=== PATIENT | female | born 1980 | race Caucasian/White ===

== ENCOUNTER 2020-01-02 12:39 | Emergency (ER) | payer OTHER ==
[2020-01-02 12:45] VITALS: BP 106/50; PULSE 62; TEMP 97.9; BMI 33.3
--- NOTE | 2020-01-02 12:56 | PDOC ---
*Physical Exam - Vital Signs Last Vital Signs Temp Pulse Resp BP Pulse Ox 97.9 F 62 18 106/50 L 99 01/02/20 12:43 01/02/20 12:43 01/02/20 12:43 01/02/20 12:43 01/02/20 12:43 - Physical Exam 01/02/20 12:56 The patient was examined by [EFRAÍN Rizo] under my direct supervision. I personally evaluated the patient. I concur with the above findings and the plan of care. ED Treatment Course - LABORATORY CBC & Chemistry Diagram: 01/02/20 13:23 01/02/20 13:23 Discharge - Discharge Information Problems reviewed: Yes Clinical Impression/Diagnosis: Threatened Condition: Stable Disposition: HOME - Follow up/Referral Referrals: Andrea Conte MD [Primary Care Provider] - - Patient Discharge Instructions Patient Printed Discharge Instructions: DI for Threatened Additional Instructions: Please return to the ED or go to your OBGYN office in TWO DAYS for repeat blood testing for continued monitoring of your . If you develop severe vaginal bleeding (more than one soaked pad an hour), dizziness, lightheadedness, palpitations, shortness of breath, or any new or worsening symptoms, please return to the ER immediately. Print Language: CZECH - Post Discharge Activity
--- NOTE | 2020-01-02 13:19 | PDOC ---
History of Present Illness - General Chief Complaint: Vaginal Bleeding Stated Complaint: 10 WEEKS VAGINAL BLEED Time Seen by Provider: 01/02/20 12:54 - History of Present Illness Initial Comments: 01/02/20 13:16 CHIEF COMPLAINT: vag bldg in HISTORY OF PRESENT ILLNESS: 39 yo 10 week F presents to ED with vaginal bleeding since this morning. Patient also c/o of headache for the past three days. Patient reports nausea but denies any vomiting. LMP 10/14/19. Patient is followed by [facility]. Patient reports having an ultrasound done 2 weeks ago with no abnormal findings. No recent travel or sick contacts. PAST MEDICAL HISTORY: Denies past medical history FAMILY HISTORY: Denies SOCIAL HISTORY: Denies tobacco, alcohol, illicit drug use. SURGICAL HISTORY: Denies ALLERGIES: No known drug allergies REVIEW OF SYSTEMS General/Constitutional: Denies fever or chills. Denies weakness, weight change. HEENT: Denies change in vision. Denies ear pain or discharge. Denies sore throat. Cardiovascular: Denies chest pain or shortness of breath. Respiratory: Denies cough, wheezing, or hemoptysis. Gastrointestinal: Denies nausea, vomiting, diarrhea or constipation. Denies rectal bleeding. Genitourinary: Vaginal spotting since this morning. Musculoskeletal: Denies joint or muscle swelling or pain. Denies neck or back pain. Skin and breasts: Denies rash or easy bruising. Neurologic: Denies headache, vertigo, loss of consciousness, or loss of sensation. Psychiatric: Denies depression or anxiety. PHYSICAL EXAM General Appearance: Well-appearing, appropriately dressed. No apparent distress. HEENT: EOMI, PERRLA, normal ENT inspection, normal voice, TMs normal, pharynx normal. No conjunctival pallor. No photophobia, scleral icterus. Neck: Supple. Trachea midline. No tenderness, rigidity, carotid bruit, stridor , lymphadenopathy, or thyromegaly. Respiratory/Chest: Lungs CTAB. No shortness of breath, chest tenderness, respiratory distress, accessory muscle use. No crackles, rales, rhonchi, stridor , wheezing, dullness Cardiovascular: RRR. S1, S2. No JVD, murmur, bradycardia, tachycardia. Vascular Pulses: Dorsalis-Pedis (R): 2+, Dorsalis-Pedis (L): 2+ Gastrointestinal/Abdominal: Normal bowel sounds. Abdomen soft, non-distended. No tenderness or rebound tenderness. No organomegaly, pulsatile mass, guarding , hernia, hepatomegaly, splenomegaly. Musculoskeletal/Extremities: Normal inspection. FROM of all extremities, normal capillary refill. Pelvis Stable. No CVA tenderness. No tenderness to extremities, pedal edema, swelling, erythema or deformity. Integumentary: Appropriate color, dry, warm. No cyanosis, erythema, jaundice or rash Neurologic: assistant clinical director II-XII intact. Fully oriented, alert. Appropriate mood/affect. Motor strength 5/5. No appreciable EOM palsy, facial droop or sensory deficit. Past History - Past Medical History Allergies/Adverse Reactions: Allergies Allergy/AdvReac Type Severity Reaction Status Date / Time No Known Allergies Allergy Verified 01/02/20 12:45 Home Medications: Ambulatory Orders Mv-Mn/Iron/FA/Herbal/Digestive [ One Tablet] 1 tab PO DAILY 04/06/15 Acetaminophen [Tylenol .Regular Strength -] 650 mg PO Q3H PRN #0 tablet Ferrous Sulfate [Feosol] 325 mg PO BID ud 10/30/15 Ibuprofen [Motrin -] 200 mg PO Q4H PRN #0 tablet 10/30/15 Asthma: No Cancer: No Cardiac Disorders: No COPD: No Diabetes: No HTN: No Seizures: No Thyroid Disease: No - Immunization History Immunization Up to Date: Yes - Psycho Social/Smoking Cessation Hx Smoking History: Never smoked Have you smoked in the past 12 months: No Information on smoking cessation initiated: No Hx Alcohol Use: No Drug/Substance Use Hx: No Hx Substance Use Treatment: No *Physical Exam - Vital Signs Last Vital Signs Temp Pulse Resp BP Pulse Ox 97.9 F 62 18 106/50 L 99 01/02/20 12:43 01/02/20 12:43 01/02/20 12:43 01/02/20 12:43 01/02/20 12:43 ED Treatment Course - LABORATORY CBC & Chemistry Diagram: 01/02/20 13:23 01/02/20 13:23 - RADIOLOGY Radiology Studies Ordered: Category Date Time Status TRANSVAGINAL US PREG [US] Stat Ultrasound 01/02/20 12:55 Ordered Medical Decision Making - Medical Decision Making 01/02/20 13:19 39 yo 10 week F presents to ED with vaginal bleeding since this morning. -labs, urine -TVUS 01/02/20 16:16 Labs unremarkable. Beta 92k+. Blood type O+, no indication for rhogam. US unremarkable. IUP visualized with estimated gestation 11 weeks and 1 day. Advised patient to return in 2 days for repeat beta. Advised of sxs for return to ER, patient verbalized understanding and agrees to plan. Discharge - Discharge Information Problems reviewed: Yes Clinical Impression/Diagnosis: Threatened Condition: Stable Disposition: HOME - Admission No - Follow up/Referral Referrals: Andrea Conte MD [Primary Care Provider] - - Patient Discharge Instructions Patient Printed Discharge Instructions: DI for Threatened Additional Instructions: Please return to the ED or go to your OBGYN office in TWO DAYS for repeat blood testing for continued monitoring of your . If you develop severe vaginal bleeding (more than one soaked pad an hour), dizziness, lightheadedness, palpitations, shortness of breath, or any new or worsening symptoms, please return to the ER immediately. Print Language: WOLOF - Post Discharge Activity
[2020-01-02 13:58] LABS: INR 0.97 (0.83-1.09); PROTHROMBIN TIME (PATIENT) 11.5 SEC (9.7-13.0)
[2020-01-02 14:01] LABS: ACTIVATED PTT 35.9 SECONDS (25.2-36.5)
[2020-01-02 14:07] LABS: ALBUMIN 3.3 g/dl (3.4-5.0); BILIRUBIN,TOTAL 0.2 mg/dL (0.2-1); BLOOD UREA NITROGEN 9.7 mg/dL (7-18); CALCIUM 8.8 mg/dL (8.5-10.1); CREATININE 0.6 mg/dL (0.55-1.3); POTASSIUM 3.9 mmol/L (3.5-5.1); TOT PROT 7.1 g/dl (6.4-8.2)
[2020-01-02 14:15] LABS: BASO % 0.9 % (0-2.0); HEMATOCRIT 35.7 % (32.4-45.2); LYMPH % 23.2 % (8-40); MCH 28.6 pg (25.7-33.7); MCHC 33.7 g/dl (32.0-36.0); MEAN CELL VOLUME 85.1 fl (80-96); MEAN PLT VOLUME 7.3 fl (7.5-11.1); MONO % 6.3 % (3.8-10.2); NEUT % 67.6 % (42.8-82.8); PLATELET COUNT 405 K/MM3 (134-434); RBC 4.19 M/mm3 (3.60-5.2); RDW 16.9 % (11.6-15.6); WHITE BLOOD COUNT 9.7 K/mm3 (4.0-10.0)
== END 2020-01-02 16:15 | disposition home or self-care (01) ==
LOC: JER 12:39
DX: O20.0 Threatened abortion (principal); Z3A.10 10 weeks gestation of pregnancy
CPT/HCPCS: 36415; 76801-TC; 80053; 84702; 85025; 85610; 85730; 86850; 86900; 86901; 99284-25

== ENCOUNTER 2020-08-01 05:00 | Inpatient (IN) | payer OTHER ==
[2020-08-01] MEDS ORDERED: OXYTOCIN 20 UNITS in 0.9% NS 20 UNIT/1,000 ML INFUS.BAG IV ONE ×2 (05:30→07:00)
[2020-08-01 05:44] VITALS: BMI 30.8
[2020-08-01 06:02] LABS: BASO % 0.4 % (0-2.0); EOS % 0.5 % (0-4.5); HEMATOCRIT 40.1 % (32.4-45.2); HEMOGLOBIN 13.1 GM/dL (10.7-15.3); LYMPH % 26.6 % (8-40); MCH 28.4 pg (25.7-33.7); MCHC 32.6 g/dl (32.0-36.0); MEAN CELL VOLUME 87.2 fl (80-96); MEAN PLT VOLUME 8.9 fl (7.5-11.1); MONO % 5.6 % (3.8-10.2); NEUT % 66.9 % (42.8-82.8); PLATELET COUNT 339 K/MM3 (134-434); RDW 16.5 % (11.6-15.6); WHITE BLOOD COUNT 13.2 K/mm3 (4.0-10.0)
--- NOTE | 2020-08-01 06:13 | HP ---
Past Medical History - Primary Care Physician PCP:: [facility] - Admission Chief Complaint: 40.2 weeks, labor , AMA History of Present Illness: 39 yo f 40.2 weeks in labor , pain started at 230am, had srom at 230 am at home , cx full 100 vx 2+ mr, clear , fhr cat 1, rcontraction q 2 min , pushing History Source: Patient Limitations to Obtaining History: Language Barrier - Past Medical History Pulmonary: Yes: Bronchitis (1 month ago treated with antibiotics for 2 weeks) Renal/: Yes: UTI ...: 3 ...Para: 2 ...Term: 2 ...: 0 ...Spon : 0 ...Induced : 0 ...Living Children: 2 ...Multiple Gestation: 0 ...LMP: 10/14/19 ... Weeks Gestation by Dates: 41.5 ...EDC by Dates: 07/20/20 ...EDC by [facility]: 07/29/20 Infectious Disease: Yes: Other (h/o bact vaginosis infection treated 03/2015). No: STD's - Past Surgical History Hx Myomectomy: No Hx Transabdominal Cerclage: No - Smoking History Smoking history: Never smoked Have you smoked in the past 12 months: No - Alcohol/Substance Use Hx Alcohol Use: No History of Substance Use: reports: None - Social History Usual Living Arrangement: Yes: With Spouse ADL: Independent History of Recent Travel: No Home Medications - Allergies Allergies/Adverse Reactions: Allergies Allergy/AdvReac Type Severity Reaction Status Date / Time No Known Allergies Allergy Verified 01/02/20 12:45 - Home Medications Home Medications: Ambulatory Orders Mv-Mn/Iron/FA/Herbal/Digestive [ One Tablet] 1 tab PO DAILY 04/06/15 Review of Systems - Review of Systems Constitutional: reports: No Symptoms Eyes: reports: No Symptoms HENT: reports: No Symptoms Neck: reports: No Symptoms Cardiovascular: reports: No Symptoms Respiratory: reports: No Symptoms Gastrointestinal: reports: No Symptoms Genitourinary: reports: No Symptoms Breasts: reports: No Symptoms Reported Musculoskeletal: reports: No Symptoms Integumentary: reports: No Symptoms Neurological: reports: No Symptoms Endocrine: reports: No Symptoms Hematology/Lymphatic: reports: No Symptoms Psychiatric: reports: No Symptoms Physical Exam - Maternity Constitutional: Yes: Well Nourished, No Distress, Calm Eyes: Yes: WNL, Conjunctiva Clear, EOM Intact HENT: Yes: WNL, Atraumatic, Normocephalic Neck: Yes: WNL, Supple, Trachea Midline Cardiovascular: Yes: WNL, Regular Rate and Rhythm Breast(s): Yes: WNL - Abdominal Exam/OB Fundal Height: 40 Number of Fetuses: Single Presentation: Vertex Contractions: Yes Regularity: Regular Intensity: Strong Monitor Mode: External Heart Rate Location: [facility] Category: I Accelerations: Non-Uniform Decelerations: None - Vaginal Exam/OB Vaginal Bleeding: No Speculum Exam: No Dilatation (cm): full Effacement (%): 100 Amniotic Membrane Status: Ruptured Nitrazine Test: Positive Amniotic Fluid: Yes: Clear Presentation: Vertex/Position Station: +2 - Physical Exam Musculoskeletal: Yes: WNL Extremities: Yes: WNL Edema: LLE: Trace, RLE: Trace Deep Tendon Reflex Grade: Normal +2 Hemorrhage Risk Assessment - Risk Factors Medium Risk Factors: Yes: None Risk Score: 1 Risk Level: Medium Risk Problem List - Problems (1) Post term over 40 weeks Code(s): O48.0 - POST-TERM (2) Labor established Code(s): GEJ0332 - (3) Advanced maternal age (AMA) in Code(s): MSY4428 - Assessment/Plan admit for vaginal delivery
[2020-08-01 06:16] LABS: CORD BASE EXCESS -10.1 mmol/L (0-2); CORD HCO3 20.5 mmHg (20-29); CORD PCO2 64.6 mmHg (30-78); CORD pH 7.12 (7.14-7.44)
[2020-08-01 06:24] LABS: CORD BASE EXCESS -9.2 mmol/L (0-2); CORD HCO3 17.4 mmHg (20-29); CORD PCO2 40.1 mmHg (30-78); CORD pH 7.255 (7.14-7.44)
[2020-08-01 06:26] LABS: INR 0.94 (0.83-1.09); PROTHROMBIN TIME (PATIENT) 11.1 SEC (9.7-13.0)
[2020-08-01 06:27] LABS: CALCIUM 9.3 mg/dL (8.5-10.1); CREATININE 0.6 mg/dL (0.55-1.3); POTASSIUM 3.7 mmol/L (3.5-5.1)
[2020-08-01 06:29] LABS: ACTIVATED PTT 31.6 SECONDS (25.2-36.5)
[2020-08-01] MEDS ORDERED: ACETAMINOPHEN 325 MG TABLET (FP) ONE (07:18)
[2020-08-01] MEDS ORDERED: IBUPROFEN 600 MG TABLET (FP) PO ONE (07:18)
[2020-08-01] MEDS: IBUPROFEN 600 MG TABLET (FP) PO PRN ×3 (07:20→21:32)
[2020-08-01] MEDS ORDERED: WITCH HAZEL 50% (TUCKS) 40 PAD/JAR PAD TP PRN (08:08)
[2020-08-01] MEDS ORDERED: BISACODYL 10 MG SUPP.RECT RC PRN (08:08)
[2020-08-01] MEDS ORDERED: METHYLERGONOVINE MALEATE 0.2 MG/1 ML AMP IM PRN (08:08)
[2020-08-01] MEDS ORDERED: BENZOCAINE 20% 57 GM BOTTLE TP PRN (08:08)
[2020-08-01] MEDS ORDERED: BENZOCAINE 28 GM HEMORRHOIDAL OINTMENT TP PRN (08:08)
--- NOTE | 2020-08-01 08:13 | PN ---
Delivery - Delivery Vaginal Delivery: Spontaneous (cx full , head on pernium, head delivered , nasopharynx suctioned ,no cord . ant, and post, shoulder with no difficulty , live baby girl , 9/9, placenat complete, 2 cm fisr degree laceration repaired with 2 chromic and local anesthsia , baby bonded with MOM) Type of Anesthesia: Local Episiotomy/Laceration: None, 1st degree EBL (cc): 300 Delivery, Single - Stages of Labor Date 1st Stage Initiatied: 08/01/20 Time 1st Stage Initiated: 02:30 Date 2nd Stage Initiated: 08/01/20 Time 2nd Stage Initiated: 05:00 Date of Delivery: 08/01/20 Time of Delivery: 05:23 Time Placenta Delivered: 05:30 - Condition of Infant Leather Stretcher/Family Law Specialist Present: Tatamy: Gianna Richard Gender: Female Weight: 8 lb 10 oz Position: OA Total Hours ROM (Hrs/Mins): 3hrs. - 1 Minute Total Score: 9 5 Minutes Total Score: 9 - [place] Feeding Plan Initial Plan: Elected not to breastfeed exclusively throughout hospitalization
[2020-08-01] MEDS ORDERED: D5W-LR W/ 20 UNITS OXYTOCIN 20 UNIT/1,000 ML INFUS.BAG IV SCH (08:15)
[2020-08-01] MEDS ORDERED: OXYTOCIN 20 UNITS in 0.9% NS 20 UNIT/1,000 ML INFUS.BAG IV SCH (08:15)
[2020-08-01] MEDS: ACETAMINOPHEN 325 MG TABLET (FP) PO PRN ×3 (08:25→21:34)
[2020-08-01] MEDS: PRENATAL VITAMINS W/ FOLIC ACID TABLET (FP) PO SCH (09:23)
[2020-08-01] MEDS: FERROUS SO4 325 MG TABLET (FP) PO SCH ×2 (09:23→21:33)
--- NOTE | 2020-08-02 07:14 | DS ---
Physical Examination Vital Signs: Vital Signs Temperature 97.8 F 08/02/20 06:00 Pulse Rate 72 08/02/20 06:00 Respiratory Rate 18 08/02/20 06:00 Blood Pressure 118/73 08/02/20 06:00 O2 Sat by Pulse Oximetry (%) 98 08/01/20 21:00 Findings/Remarks: Ambulating, tolerating PO, lochia decreased,breast feeding, voiding, desiring to go home Constitutional: Yes: Well Nourished Eyes: Yes: WNL HENT: Yes: Atraumatic Neck: Yes: Supple Cardiovascular: Yes: Regular Rate and Rhythm Respiratory: Yes: Regular Gastrointestinal: Yes: Soft ...Rectal Exam: Yes: Other Renal/: Yes: Other Musculoskeletal: Yes: WNL Extremities: Yes: WNL Edema: Yes Edema: LLE: Trace, RLE: Trace Integumentary: Yes: WNL Neurological: Yes: Alert, Oriented ...Motor Strength: WNL Psychiatric: Yes: Alert, Oriented Labs: CBC, BMP 08/01/20 05:10 08/01/20 05:10 Discharge Summary Problems reviewed: Yes Reason For Visit: LABOR Current Active Problems Advanced maternal age (AMA) in (Acute) Labor established (Acute) Post term over 40 weeks (Acute) Procedures: Principal: Vaginal delivery Hospital Course: Uncomplicated delivery and recovery Health Concerns: Follow up within 3-4 weeks of discharge for BTL consult Plan of Treatment: Follow up as outpatient Condition: Stable - Instructions Diet, Activity, Other Instructions: Return to regular diet and activity as tolerated, follow up at health center as instructed, take medications as prescribed, call health center with any questions Referrals: Andrea Conte MD [Staff Physician] - Disposition: HOME - Home Medications Comprehensive Discharge Medication List: Ambulatory Orders Mv-Mn/Iron/FA/Herbal/Digestive [ One Tablet] 1 tab PO DAILY 04/06/15 Prescription Drug Monitoring Program (I-STOP) results: I-STOP reviewed and no issues identified
[2020-08-02 08:38] LABS: BASO % 0.6 % (0-2.0); EOS % 1.6 % (0-4.5); HEMATOCRIT 31.1 % (32.4-45.2); HEMOGLOBIN 10.5 GM/dL (10.7-15.3); MCH 29.9 pg (25.7-33.7); MCHC 33.8 g/dl (32.0-36.0); MEAN CELL VOLUME 88.3 fl (80-96); MEAN PLT VOLUME 8.4 fl (7.5-11.1); MONO % 4.8 % (3.8-10.2); PLATELET COUNT 282 K/MM3 (134-434); RBC 3.52 M/mm3 (3.60-5.2); RDW 16.5 % (11.6-15.6); WHITE BLOOD COUNT 10.4 K/mm3 (4.0-10.0)
[2020-08-02 10:16] VITALS: BP 116/72; PULSE 81; TEMP 97.9
[2020-08-02] MEDS: FERROUS SO4 325 MG TABLET (FP) PO SCH (11:14)
[2020-08-02] MEDS: PRENATAL VITAMINS W/ FOLIC ACID TABLET (FP) PO SCH (11:14)
[2020-08-02] MEDS ORDERED: SENNOSIDES/DOCUSATE COMBO (SENNA PLUS) TABLET (UD) PO PRN (22:00)
== END 2020-08-02 16:20 | disposition home or self-care (01) | DRG 560 ==
LOC: JLDR 05:00 → J3W 08:53
PROVIDERS: ADMIT Obstetrics & Gynecology; ATTEND Obstetrics & Gynecology
PROC: 10E0XZZ Delivery of Products of Conception, External Approach (ICD-10-PCS; principal; 2020-08-01)
PROC: 0HQ9XZZ Repair Perineum Skin, External Approach (ICD-10-PCS; 2020-08-01)
DX: O48.0 Post-term pregnancy (principal); O70.0 First degree perineal laceration during delivery; Z3A.41 41 weeks gestation of pregnancy; Z37.0 Single live birth; Z87.09 Personal history of other diseases of the respiratory system; Z87.440 Personal history of urinary (tract) infections
CPT/HCPCS: 36415; 36600; 59409; 80048; 82803; 85025; 85610; 85730; 86780; 86850; 86900; 86901; 87389; U0003

== ENCOUNTER 2022-04-24 23:52 | Emergency (ER) | payer OTHER ==
[2022-04-25 00:13] VITALS: BP 112/85; PULSE 75; TEMP 98.2; BMI 25.7
[2022-04-25] MEDS ORDERED: LIDOCAINE 5% TOPICAL PATCH TP ONE (00:39)
[2022-04-25] MEDS ORDERED: LIDOCAINE 5% TOPICAL PATCH ONE (01:09)
[2022-04-25] MEDS ORDERED: DEXAMETHASONE SOD PHOSPHATE 10 MG/1 ML VIAL IM ONE (02:26)
[2022-04-25] MEDS ORDERED: KETOROLAC TROMETHAMINE 15 MG/ML VIAL IM ONE (02:26)
[2022-04-25] MEDS ORDERED: DEXAMETHASONE SOD PHOSPHATE 10 MG/1 ML VIAL ONE (02:58)
[2022-04-25] MEDS ORDERED: KETOROLAC TROMETHAMINE 15 MG/ML VIAL ONE (02:58)
[2022-04-25] MEDS ORDERED: LIDOCAINE PATCH REMOVAL MC ONE (13:00)
== END 2022-04-25 03:19 | disposition home or self-care (01) ==
LOC: JER 23:52
PROC: 3E023GC Introduction of Other Therapeutic Substance into Muscle, Percutaneous Approach (ICD-10-PCS; principal; 2022-04-25)
DX: R51.9 Headache, unspecified (principal); M62.838 Other muscle spasm; M54.2 Cervicalgia
CPT/HCPCS: 70450-TC; 72125-TC; 93005; 93010; 99284-25; J1100

== ENCOUNTER 2022-12-19 20:11 | Emergency (ER) | payer OTHER ==
[2022-12-19 20:16] VITALS: BP 146/77; PULSE 70; RESP 18; TEMP 97.5; BMI 33.2
[2022-12-19] MEDS ORDERED: KETOROLAC TROMETHAMINE 30 MG/1 ML VIAL IVPUSH ONE (20:42)
[2022-12-19] MEDS ORDERED: diazePAM 5 MG TABLET PO ONE (20:42)
[2022-12-19] MEDS ORDERED: SODIUM CHLORIDE 0.9% 500 ML INFUS.BAG IV ONE (20:42)
[2022-12-19] MEDS ORDERED: diazePAM 5 MG TABLET ONE (21:22)
[2022-12-19] MEDS ORDERED: KETOROLAC TROMETHAMINE 30 MG/1 ML VIAL ONE (21:22)
[2022-12-19 21:38] LABS: EPI CELLS 28 /uL (0-25.1); HYALINE CASTS 1 /uL (0-3.1); PH,URINE 6.5 (5.0-8.0); URINE APPEARANCE CLEAR; URINE BACTERIA 1544 /uL (0-1359); URINE BILIRUBIN NEGATIVE (NEGATIVE); URINE COLOR YELLOW; URINE GLUCOSE (UA) NEGATIVE (NEGATIVE); URINE KETONE NEGATIVE (NEGATIVE); URINE LEUK ESTERASE TRACE (NEGATIVE); URINE NITRITE NEGATIVE (NEGATIVE); URINE PROTEIN NEGATIVE (NEGATIVE); URINE RBC 9 /uL (0-23.9); URINE UROBILINOGEN 0.2 mg/dL (0.2-1.0); URINE WBC 37 /uL (0-25.8)
[2022-12-19 22:07] LABS: CALCIUM 8.9 mg/dL (8.5-10.1)
[2022-12-19 22:08] LABS: ALBUMIN 3.5 g/dl (3.4-5.0); BLOOD UREA NITROGEN 14.1 mg/dL (7-18)
[2022-12-19 22:11] LABS: CREATININE 0.9 mg/dL (0.55-1.3)
[2022-12-19 22:13] LABS: BILIRUBIN,TOTAL 0.3 mg/dL (0.2-1); TOT PROT 7.9 g/dl (6.4-8.2)
[2022-12-19 22:16] LABS: BASO % 0.7 % (0-2.0); EOS % 2.9 % (0-4.5); HEMATOCRIT 33.4 % (32.4-45.2); HEMOGLOBIN 11.5 GM/dL (10.7-15.3); LYMPH % 31.6 % (8-40); MCH 29.9 pg (25.7-33.7); MCHC 34.5 g/dl (32.0-36.0); MEAN CELL VOLUME 86.7 fl (80-96); MEAN PLT VOLUME 6.9 fl (7.5-11.1); MONO % 6.1 % (3.8-10.2); NEUT % 58.7 % (42.8-82.8); PLATELET COUNT 446 10^3/uL (134-434); RBC 3.85 M/mm3 (3.60-5.2); RDW 15.4 % (11.6-15.6); WHITE BLOOD COUNT 9.4 K/mm3 (4.0-10.0)
== END 2022-12-19 23:40 | disposition home or self-care (01) ==
LOC: JERFT 20:11
PROC: 3E0333Z Introduction of Anti-inflammatory into Peripheral Vein, Percutaneous Approach (ICD-10-PCS; principal; 2022-12-19)
DX: R20.2 Paresthesia of skin (principal); R53.1 Weakness; M54.31 Sciatica, right side; M54.32 Sciatica, left side
CPT/HCPCS: 36415; 80053; 81003; 84132; 85025; 87086; 99284-25

== ENCOUNTER 2023-01-14 21:27 | Emergency (ER) | payer OTHER ==
[2023-01-14 21:32] VITALS: BP 134/82; PULSE 98; RESP 18; TEMP 98; BMI 33.2
[2023-01-14] MEDS ORDERED: MECLIZINE HCL 25 MG TABLET (FP) PO ONE (22:19)
[2023-01-14] MEDS ORDERED: ACETAMINOPHEN 325 MG TABLET (FP) PO ONE (22:29)
[2023-01-14] MEDS ORDERED: IBUPROFEN 400 MG TABLET (FP) PO ONE ×2 (22:29→22:49)
[2023-01-14] MEDS ORDERED: ACETAMINOPHEN 325 MG TABLET (FP) ONE (22:48)
[2023-01-14] MEDS ORDERED: MECLIZINE HCL 25 MG TABLET (FP) ONE (22:49)
[2023-01-14 23:08] LABS: BASO % 0.8 % (0-2.0); EOS % 2.7 % (0-4.5); HEMATOCRIT 36.5 % (32.4-45.2); LYMPH % 31.6 % (8-40); MCHC 32.9 g/dl (32.0-36.0); MEAN CELL VOLUME 85.3 fl (80-96); MEAN PLT VOLUME 6.8 fl (7.5-11.1); MONO % 5.2 % (3.8-10.2); NEUT % 59.7 % (42.8-82.8); PLATELET COUNT 478 10^3/uL (134-434); RBC 4.28 M/mm3 (3.60-5.2); RDW 14.8 % (11.6-15.6); WHITE BLOOD COUNT 9.5 K/mm3 (4.0-10.0)
[2023-01-14 23:14] LABS: EPI CELLS 7 /uL (0-25.1); HCG,QUALITATIVE URINE Negative; HYALINE CASTS 0 /uL (0-3.1); PH,URINE 5.5 (5.0-8.0); URINE APPEARANCE CLEAR; URINE BACTERIA 288 /uL (0-1359); URINE BILIRUBIN NEGATIVE (NEGATIVE); URINE COLOR YELLOW; URINE GLUCOSE (UA) NEGATIVE (NEGATIVE); URINE KETONE NEGATIVE (NEGATIVE); URINE LEUK ESTERASE 1+ (NEGATIVE); URINE NITRITE NEGATIVE (NEGATIVE); URINE PROTEIN NEGATIVE (NEGATIVE); URINE RBC 7 /uL (0-23.9); URINE UROBILINOGEN 0.2 mg/dL (0.2-1.0); URINE WBC 41 /uL (0-25.8)
[2023-01-14 23:56] LABS: CALCIUM 9.3 mg/dL (8.5-10.1)
[2023-01-14 23:57] LABS: BLOOD UREA NITROGEN 18.8 mg/dL (7-18); MAGNESIUM 2.3 mg/dL (1.8-2.4)
[2023-01-14 23:59] LABS: CREATININE 0.6 mg/dL (0.55-1.3); PHOSPHOROUS 3.9 mg/dL (2.5-4.9)
[2023-01-15 00:01] LABS: BILIRUBIN,TOTAL 0.6 mg/dL (0.2-1); TOT PROT 7.5 g/dl (6.4-8.2)
== END 2023-01-15 01:58 | disposition home or self-care (01) ==
LOC: JER 21:27
DX: R53.1 Weakness (principal)
CPT/HCPCS: 0241U-QW; 36415; 70450-TC; 71045-TC-FY; 80053; 81003; 82550; 83735; 84100; 84443; 84484; 84703; 85025; 85651; 86140; 87086; 93005; 93010; 99285-25